=== PATIENT | male | born 1980 | race Caucasian/White ===

== ENCOUNTER 2018-01-30 15:30 | Emergency (ER) | payer OTHER ==
[~2018-01-30] VITALS: Ht 182.9 cm; Wt 88.5 kg
[~2018-01-30 15:30] MED LIST: NOHOMEMEDICATIONS; NORCO 5-325 TA1 EACH PO; PENICILLIN V P500 MG PO; PENICILLIN VK500 M1 PO
[2018-01-30 15:45] VITALS: BP 114/81
[2018-01-30] MEDS ORDERED: AMOXICILLIN 50500 MG PO (16:16)
[2018-01-30] MEDS ORDERED: MOBIC7.5 MG PO (16:16)
== END 2018-01-30 17:36 | disposition home or self-care (01) ==
LOC: ER 15:30
DX: K02.9 Dental caries, unspecified (principal); K08.89 Other specified disorders of teeth and supporting structures